=== PATIENT | female | born 1990 | race Caucasian/White ===

== ENCOUNTER 2016-08-11 09:22 | Emergency (ER) | payer OTHER ==
--- NOTE | 2016-08-11 09:48 | EDDOCDS ---
Nurse's Notes [facility] Name: Nette Perez Age: 26 yrs Sex: Female : 1990 Arrival Date: 08/11/2016 Time: 09:22 Bed Triage 2 Private MD: [facility] Diagnosis: Unspecified injury of head;Concussion without loss of consciousness Presentation: 08/11 09:27 Presenting complaint: Patient states: has had a headache since 1400 yesterday .2 days [facility] ago was running to catch her daughter and hit head on play equipment bar .headache top of head. This patient has no additional risk factors. Adult Sepsis Screening: The patient does not have new or worsening altered mentation. Patient's respiratory rate is less than 22. Systolic blood pressure is greater than 100. Patient has a qSOFA score of 0- Negative Sepsis Screen. Suicide/Homicide risk assessment- the patient denies having any suicidal and/or homicidal ideations and does not present with any other emotional, behavioral or mental health complaints. Status: The patient is a dependent. Transition of care: patient was not received from another setting of care. 09:27 Acuity: JACOBO Level 4 [facility] 09:27 Method Of Arrival: Walkin/Carried/Asstd [facility] Triage Assessment: 09:32 Headache History: This patient does not have a history of previous headaches. General: kpj Appears in no apparent distress, Behavior is appropriate for age, pleasant. Pain: Location: top of head Pain currently is 8 out of 10 on a pain scale. Pt Declines HIV testing. Neurological: Level of Consciousness is awake, alert, Oriented to person, place, time, Gait is steady, Speech is normal, Facial symmetry appears normal, Pupils are PERRLA, Reports headache. Respiratory: Airway is patent Respiratory effort is even, unlabored. Derm: Skin is pink, warm & dry. SECTION GANG: 09:32 LMP 07/21/2016 [facility] Historical: - Allergies: PENICILLINS (Rash); - Home Meds: 1. nexplanon control 2. [place] 5-325 mg Oral tab 1 tab every 4 hours as needed for menstraul cramps (Last dose: 08/10/2016) 3. ibuprofen 800 mg Oral tab 1 tab 3 times per day as needed (Last dose: 08/10/2016) - PMHx: none; - PSHx: x 2; - Social history: Smoking status: Patient uses tobacco products, light tobacco smoker. No barriers to communication noted, The patient speaks fluent Moroccan. - Family history: Not pertinent. - : The pt / caregiver states he / she is not on anticoagulants. Home medication list is obtained from the patient. - Exposure Risk Screening:: None identified. Screenin:46 Screening information is obtained from the patient. Fall risk: No risks identified. dwg Assistance ADL's: requires no assistance with activities of daily living. Abuse/DV Screen: The patient / caregiver reports he/she is: not in a situation that causes fear, pain or injury. Nutritional screening: No deficits noted. Advance Directives: Currently, there is no health care proxy. There is no active DNR order. There is no living will. There is no Power of Environmental Services Manager. Advance directive information has not previously been placed in an [facility] medical record. Further advance directive information is declined. home support is adequate. Assessment: 09:45 General: Appears in no apparent distress, Behavior is cooperative. Pain: Pain currently dwg is 6 out of 10 on a pain scale. Neurological: Level of Consciousness is awake, alert, Oriented to person, place, time, Cash Processing Specialist are equal bilaterally Gait is steady, Speech is normal, Facial symmetry appears normal, Pupils are PERRLA. Respiratory: Airway is patent Respiratory effort is even, unlabored, Respiratory pattern is regular, symmetrical. Vital Signs: 09:24 BP 110 / 63; Pulse 107; Resp 16; Temp 98.5(O); Pulse Ox 99% on R/A; Weight 58.97 kg; elp Height 5 ft. 3 in. (160.02 cm); Pain 8/10; 09:24 Body Mass Index 23.03 (58.97 kg, 160.02 cm) [facility] Vitals: 09:24 Log In Time: August 11, 2016 at 09:22. [facility] ED Course: 09:24 Patient visited by Suzanne Martel PCA. elp 09:24 GABRIEL Rasmussen is Private Physician. elp 09:24 Patient moved to Waiting elp 09:25 Patient visited by Suzanne Martel PCA. elp 09:25 Patient moved to Pre RCE elp 09:30 Triage Initiated [facility] 09:34 Sourav Brown [facility] cc10 09:34 Liz Rosen MD is Attending Physician. cc10 09:34 Patient visited by Sourav Brown PA-C. cc10 09:34 Patient visited by Sourav Brown PA-C. cc10 09:34 Patient moved to Triage 2 [facility] 09:39 Grady [facility] is Referral Physician. cc10 09:46 The patient / caregiver is instructed regarding the plan of care and ED course. dwg 09:46 No IV's were initiated during this patient's visit. No procedures done that require dwg assistance. Order Results: There are currently no results for this order. Outcome: 09:39 Discharge ordered by Provider. cc10 09:46 Discharge Assessment: Patient awake, alert and oriented x 3. No cognitive and/or dwg functional deficits noted. Patient verbalized understanding of disposition instructions. patient administered narcotics - no. The following High Risk Discharge criteria are identified: None. Discharged to home ambulatory. Condition: good Condition: stable. No special radiology studies were completed. Property sent home with patient. 09:47 Patient left the ED. dwg Signatures: Jalen Campa, RN RN Claudine Jensen, MILLIE PINTO [facility] Suzanne Martel, MINI TURN OUT elp Sourav Brown PA-C PA-C cc10 MTDD
--- NOTE | 2016-08-11 09:48 | EDDOCDS ---
Physician Documentation [facility] Name: Nette Perez Age: 26 yrs Sex: Female : 1990 Arrival Date: 08/11/2016 Time: 09:22 Bed Triage 2 Private MD: GABRIEL Rasmussen Disposition: 08/11/16 09:39 Discharged to Home/Self Care. Impression: Unspecified injury of head, Concussion without loss of consciousness. - Condition is Stable. - Discharge Instructions: Concussion, Adult. - Prescriptions for Naprosyn 500 mg Oral Tablet - take 1 tablet by ORAL route 2 times per day take with food; 30 tablet. - Medication Reconciliation, Local Pharmacy Hours, Family Work Release form. - Follow up: GABRIEL Rasmussen; When: Call to arrange an appointment; Reason: Wound/Symptom Recheck, Recheck today's complaints, Continuance of care. - Problem is an ongoing problem. - Symptoms are unchanged. Historical: - Allergies: PENICILLINS (Rash); - Home Meds: 1. nexplanon control 2. [place] 5-325 mg Oral tab 1 tab every 4 hours as needed for menstraul cramps (Last dose: 08/10/2016) 3. ibuprofen 800 mg Oral tab 1 tab 3 times per day as needed (Last dose: 08/10/2016) - PMHx: none; - PSHx: x 2; - Social history: Smoking status: Patient uses tobacco products, light tobacco smoker. No barriers to communication noted, The patient speaks fluent Chilean. - Family history: Not pertinent. - : The pt / caregiver states he / she is not on anticoagulants. Home medication list is obtained from the patient. - Exposure Risk Screening:: None identified. 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 3 in. (160.02 cm); Pain 8/10; 09:24 Body Mass Index 23.03 (58.97 kg, 160.02 cm) elp MDM: 09:44 Financial registration complete. lg Signatures: Jalen Campa, RN RN Claudine Jensen RN RN cesarj Mel Nicholson, Reg Reg lg Sourav Brown, PA-C PA-C cc10 MTDD
--- NOTE | 2016-08-13 10:48 | EDDOCDS ---
Physician Documentation [facility] Name: Nette Perez Age: 26 yrs Sex: Female : 1990 Arrival Date: 08/11/2016 Time: 09:22 Bed Triage 2 Private MD: GABRIEL Rasmussen Disposition: 08/11/16 09:39 Discharged to Home/Self Care. Impression: Unspecified injury of head, Concussion without loss of consciousness. - Condition is Stable. - Discharge Instructions: Concussion, Adult. - Prescriptions for Naprosyn 500 mg Oral Tablet - take 1 tablet by ORAL route 2 times per day take with food; 30 tablet. - Medication Reconciliation, Local Pharmacy Hours, Family Work Release form. - Follow up: GABRIEL Rasmussen; When: Call to arrange an appointment; Reason: Wound/Symptom Recheck, Recheck today's complaints, Continuance of care. - Problem is an ongoing problem. - Symptoms are unchanged. Historical: - Allergies: PENICILLINS (Rash); - Home Meds: 1. nexplanon control 2. [place] 5-325 mg Oral tab 1 tab every 4 hours as needed for menstraul cramps (Last dose: 08/10/2016) 3. ibuprofen 800 mg Oral tab 1 tab 3 times per day as needed (Last dose: 08/10/2016) - PMHx: none; - PSHx: x 2; - Social history: Smoking status: Patient uses tobacco products, light tobacco smoker. No barriers to communication noted, The patient speaks fluent Chadian. - Family history: Not pertinent. - : The pt / caregiver states he / she is not on anticoagulants. Home medication list is obtained from the patient. - Exposure Risk Screening:: None identified. 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 Vital Signs: 09:24 BP 110 / 63; Pulse 107; Resp 16; Temp 98.5(O); Pulse Ox 99% on R/A; Weight 58.97 kg / elp 130.01 lbs; Height 5 ft. 3 in. (160.02 cm); Pain 8/10; 09:24 Body Mass Index 23.03 (58.97 kg, 160.02 cm) elp MDM: 09:44 Financial registration complete. lg 10:13 [facility] Payment Agreement was scanned into [employer] and attached to record. lg 14:47 T-Sheet-- Draft Copy was scanned into [employer] and attached to record. gb Signatures: Jalen Campa RN RN dwg Jobson, Karen, RN RN kpj Barnhardt, Gloria, Reg Reg gb AraMel colby, Reg Reg lg Sourav Brown, PANaveenC PABridgette cc10 The chart was reviewed and I authenticate all verbal orders and agree with the evaluation and treatment provided.Attachments: 10:13 [facility] Payment Agreement lg 14:47 T-Sheet-- Draft Copy gb Chart Complete MTDD
--- NOTE | 2016-08-13 10:48 | EDDOCDS ---
Physician Documentation [facility] Name: Nette Perez Age: 26 yrs Sex: Female : 1990 Arrival Date: 08/11/2016 Time: 09:22 Bed Triage 2 Private MD: GABRIEL Rasmussen Disposition: 08/11/16 09:39 Discharged to Home/Self Care. Impression: Unspecified injury of head, Concussion without loss of consciousness. - Condition is Stable. - Discharge Instructions: Concussion, Adult. - Prescriptions for Naprosyn 500 mg Oral Tablet - take 1 tablet by ORAL route 2 times per day take with food; 30 tablet. - Medication Reconciliation, Local Pharmacy Hours, Family Work Release form. - Follow up: GABRIEL Rasmussen; When: Call to arrange an appointment; Reason: Wound/Symptom Recheck, Recheck today's complaints, Continuance of care. - Problem is an ongoing problem. - Symptoms are unchanged. Historical: - Allergies: PENICILLINS (Rash); - Home Meds: 1. nexplanon control 2. [place] 5-325 mg Oral tab 1 tab every 4 hours as needed for menstraul cramps (Last dose: 08/10/2016) 3. ibuprofen 800 mg Oral tab 1 tab 3 times per day as needed (Last dose: 08/10/2016) - PMHx: none; - PSHx: x 2; - Social history: Smoking status: Patient uses tobacco products, light tobacco smoker. No barriers to communication noted, The patient speaks fluent Nauruan. - Family history: Not pertinent. - : The pt / caregiver states he / she is not on anticoagulants. Home medication list is obtained from the patient. - Exposure Risk Screening:: None identified. 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 3 in. (160.02 cm); Pain 8/10; 09:24 Body Mass Index 23.03 (58.97 kg, 160.02 cm) elp MDM: 09:44 Financial registration complete. lg 10:13 [facility] Payment Agreement was scanned into [employer] and attached to record. lg 14:47 T-Sheet-- Draft Copy was scanned into [employer] and attached to record. gb Signatures: Jalen Campa RN RN dwg Jobson, Karen, RN RN kpj Barnhardt, Gloria, Reg Reg gb AraMel colby, Reg Reg lg Sourav Brown, PANaveenC PABridgette cc10 The chart was reviewed and I authenticate all verbal orders and agree with the evaluation and treatment provided.Attachments: 10:13 [facility] Payment Agreement lg 14:47 T-Sheet-- Draft Copy gb Chart Complete MTDD
--- NOTE | 2016-08-13 10:48 | EDDOCDS ---
Nurse's Notes [facility] Name: Nette Perez Age: 26 yrs Sex: Female : 1990 Arrival Date: 08/11/2016 Time: 09:22 Bed Triage 2 Private MD: Grady [facility] Diagnosis: Unspecified injury of head;Concussion without loss of consciousness Presentation: 08/11 09:27 Presenting complaint: Patient states: has had a headache since 1400 yesterday .2 days [facility] ago was running to catch her daughter and hit head on play equipment bar .headache top of head. This patient has no additional risk factors. Adult Sepsis Screening: The patient does not have new or worsening altered mentation. Patient's respiratory rate is less than 22. Systolic blood pressure is greater than 100. Patient has a qSOFA score of 0- Negative Sepsis Screen. Suicide/Homicide risk assessment- the patient denies having any suicidal and/or homicidal ideations and does not present with any other emotional, behavioral or mental health complaints. Status: The patient is a dependent. Transition of care: patient was not received from another setting of care. 09:27 Acuity: JACOBO Level 4 [facility] 09:27 Method Of Arrival: Walkin/Carried/Asstd [facility] Triage Assessment: 09:32 Headache History: This patient does not have a history of previous headaches. General: kpj Appears in no apparent distress, Behavior is appropriate for age, pleasant. Pain: Location: top of head Pain currently is 8 out of 10 on a pain scale. Pt Declines HIV testing. Neurological: Level of Consciousness is awake, alert, Oriented to person, place, time, Gait is steady, Speech is normal, Facial symmetry appears normal, Pupils are PERRLA, Reports headache. Respiratory: Airway is patent Respiratory effort is even, unlabored. Derm: Skin is pink, warm & dry. 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 nexplanon control 2. [place] 5-325 mg Oral tab 1 tab every 4 hours as needed for menstraul cramps (Last dose: 08/10/2016) 3. ibuprofen 800 mg Oral tab 1 tab 3 times per day as needed (Last dose: 08/10/2016) - PMHx: none; - PSHx: x 2; - Social history: Smoking status: Patient uses tobacco products, light tobacco smoker. No barriers to communication noted, The patient speaks fluent North Korean. - Family history: Not pertinent. - : The pt / caregiver states he / she is not on anticoagulants. Home medication list is obtained from the patient. - Exposure Risk Screening:: None identified. Screenin:46 Screening information is obtained from the patient. Fall risk: No risks identified. dwg Assistance ADL's: requires no assistance with activities of daily living. Abuse/DV Screen: The patient / caregiver reports he/she is: not in a situation that causes fear, pain or injury. Nutritional screening: No deficits noted. Advance Directives: Currently, there is no health care proxy. There is no active DNR order. There is no living will. There is no Power of Chemist Water Purification. Advance directive information has not previously been placed in an [facility] medical record. Further advance directive information is declined. home support is adequate. Assessment: 09:45 General: Appears in no apparent distress, Behavior is cooperative. Pain: Pain currently dwg is 6 out of 10 on a pain scale. Neurological: Level of Consciousness is awake, alert, Oriented to person, place, time, [place] Spray Unit Adjuster are equal bilaterally Gait is steady, Speech is normal, Facial symmetry appears normal, Pupils are PERRLA. Respiratory: Airway is patent Respiratory effort is even, unlabored, Respiratory pattern is regular, symmetrical. Vital Signs: 09:24 BP 110 / 63; Pulse 107; Resp 16; Temp 98.5(O); Pulse Ox 99% on R/A; Weight 58.97 kg; elp Height 5 ft. 3 in. (160.02 cm); Pain 8/10; 09:24 Body Mass Index 23.03 (58.97 kg, 160.02 cm) [facility] Vitals: 09:24 Log In Time: August 11, 2016 at 09:22. [facility] ED Course: 09:24 Patient visited by Suzanne Martel PCA. elp 09:24 GABRIEL Rasmussen is Private Physician. elp 09:24 Patient moved to Waiting elp 09:25 Patient visited by Suzanne Martel PCA. elp 09:25 Patient moved to Pre RCE elp 09:30 Triage Initiated [facility] 09:34 Sourav [facility] cc[facility] 09:34 Liz Rosen MD is Attending Physician. cc10 09:34 Patient visited by Sourav Brown PA-C. cc10 09:34 Patient visited by Sourav Brown PA-C. cc10 09:34 Patient moved to Triage 2 [facility] 09:39 Grady [facility] is Referral Physician. cc10 09:46 The patient / caregiver is instructed regarding the plan of care and ED course. dwg 09:46 No IV's were initiated during this patient's visit. No procedures done that require dwg assistance. 10:13 [facility] Payment Agreement was scanned into [employer] and attached to record. 14:47 T-Sheet-- Draft Copy was scanned into [employer] and attached to record. gb Order Results: There are currently no results for this order. Outcome: 09:39 Discharge ordered by Provider. cc10 09:46 Discharge Assessment: Patient awake, alert and oriented x 3. No cognitive and/or dwg functional deficits noted. Patient verbalized understanding of disposition instructions. patient administered narcotics - no. The following High Risk Discharge criteria are identified: None. Discharged to home ambulatory. Condition: good Condition: stable. No special radiology studies were completed. Property sent home with patient. 09:47 Patient left the ED. dwg Signatures: Jalen Campa, RN RN Claudine Jensen, MILLIE RN [facility] Mary Foley, Reg Reg gb Ganter, Mel, Reg Reg lg Patchen, Suzanne, CLINICAL NURSE OCCUPATIONAL MEDICINE CLINICAL NURSE OCCUPATIONAL MEDICINE elp Suorav Brown PA-C PA-C cc10 Chart Complete MTDD
== END 2016-08-11 09:47 | disposition home or self-care (01) ==
LOC: M ED 09:22
DX: S06.0X0A Concussion without loss of consciousness, initial encounter (principal); W22.09XA Striking against other stationary object, initial encounter; Y92.098 Other place in other non-institutional residence as the place of occurrence of the external cause; Y93.02 Activity, running; Y99.8 Other external cause status; F17.210 Nicotine dependence, cigarettes, uncomplicated; Z88.0 Allergy status to penicillin

== ENCOUNTER → 2017-08-19 | Outpatient (REF) | payer OTHER | LOC: M SFHCLERA 17:11 | DX: N30.01 Acute cystitis with hematuria (principal) ==

== ENCOUNTER → 2018-05-31 | Outpatient (REF) | payer OTHER | LOC: M SFHCLERA 17:59 | DX: J02.9 Acute pharyngitis, unspecified (principal) ==